=== PATIENT | female | born 1985 | race Caucasian/White ===

== ENCOUNTER 2020-08-31 17:08 | Inpatient (IN) | payer OTHER ==
[~2020-08-31] VITALS: Ht 167.6 cm; Wt 118.8 kg
[2020-08-31 18:42] LABS: HEMOGLOBIN 12.8 gm/dl (12.3-15.3); RED BLOOD COUNT 4.27 M/UL (4.00-5.10); WHITE BLOOD COUNT 13.1 K/UL (4.5-11.0)
[2020-08-31 19:02] LABS: BUN/CREATININE RATIO 26 (0-10)
[2020-08-31] MEDS ORDERED: SINGULAIR10 MG PO (22:53)
[2020-08-31] MEDS ORDERED: ASPIRIN CHEWABL81 MG PO (22:53)
[2020-08-31] MEDS ORDERED: SYMBICORT 80-10.2 GM INH (22:54)
[2020-08-31] MEDS ORDERED: PRENATAL VITAM1 EAC3 PO (22:54)
[2020-08-31] MEDS ORDERED: PROVENTIL PO (22:55)
[2020-08-31] MEDS ORDERED: [UNRECOGNIZED DRUG - OTHER] PO (22:55)
[2020-09-03] MEDS ORDERED: ACETAMINOPHEN325 MG PO (10:35)
[2020-09-03] MEDS ORDERED: DOCUSATE SODIU100 MG PO (10:35)
[2020-09-03] MEDS ORDERED: IBUPROFEN600 MG PO (10:35)
[2020-09-03] MEDS ORDERED: PROVENTIL HFA6.7 GM INH (15:13)
== END 2020-09-04 18:01 | disposition home or self-care (01) | DRG 788 ==
LOC: GENOP 17:08 → OB 17:47
PROVIDERS: Obstetrics & Gynecology; ADMIT Obstetrics & Gynecology
PROC: 3E02340 Introduction of Influenza Vaccine into Muscle, Percutaneous Approach (ICD-10-PCS; 2020-09-01)
PROC: 10D00Z1 Extraction of Products of Conception, Low, Open Approach (ICD-10-PCS; principal; 2020-09-01 11:55)
DX: O14.14 Severe pre-eclampsia complicating childbirth (principal); O62.0 Primary inadequate contractions; Z3A.36 36 weeks gestation of pregnancy; Z37.0 Single live birth; O99.324 Drug use complicating childbirth; Z23 Encounter for immunization; Z20.822 Contact with and (suspected) exposure to COVID-19; Z53.29 Procedure and treatment not carried out because of patient's decision for other reasons
CPT/HCPCS: 36415; 80053; 80307; 81001; 82570; 82800; 83615; 83735; 84156; 84550; 85014; 85018; 85025; 90472; 90686; 90715; 94640; 94664; C9113; J0690; J1650; J1885; J2274; J2405; J2590; J2795; J3010; J3475; J7120; U0002